=== PATIENT | male | born 1970 | race Caucasian/White ===

== ENCOUNTER 2018-06-07 18:12 | Emergency (ER) | payer SELFPAY ==
[~2018-06-07 18:12] MED LIST: CLO1 PO; DOXY-179 PO
--- NOTE | 2018-06-07 18:18 | ER Report ---
History and Physical Time Seen By MD: 18:19 HPI/ROS CHIEF COMPLAINT: Right flank pain HISTORY OF PRESENT ILLNESS: 47-year-old male with a history of irritable bowel syndrome presents ambulatory to the ER complaining of severe right flank pain f or most of the day. Tonight. It's unbearable. He's been vomiting. Patient notes he does have a family history of kidney stones. He's never had kidney stones but both his dad and sister do. Patient took his Bentyl without improvement of his symptoms. REVIEW OF SYSTEMS: Respiratory: No cough, no dyspnea. Cardiovascular: No chest pain, no palpitations. Gastrointestinal: As above Musculoskeletal: As above Allergies: Coded Allergies: No Known Drug Allergies (Unverified , 11/26/11) Home Meds Reported Medications Lamotrigine (LAMICTAL) 200 Mg Tablet, 200 MG PO 06/07/18 Gabapentin (GABAPENTIN) 300 Mg Capsule, 300 MG PO TID, CAPSULE 06/07/18 Discontinued Reported Medications Doxycycline Hyclate (Doxycycline Hyclate) 100 Mg Tablet, 100 MG PO BID, #42 11/26/11 Clonazepam (Klonopin) 1 Mg Tab, 2 MG PO RACHEAL 11/26/11 Reviewed Nurses Notes: Yes Old Medical Records Reviewed: Yes Hx Smoking: No Hx Substance Use Disorder: No Hx Alcohol Use: Yes (OCCASSIONALLY) Constitutional Vital Sign - Last 24 Hours 06/07/18 06/07/18 06/07/18 06/07/18 18:12 18:23 18:24 18:27 Temp 98.2 Pulse ??? 79 80 Resp 18 B/P (MAP) 162/92 162/92 (115) Pulse Ox 92 93 O2 Delivery Room Air 06/07/18 06/07/18 06/07/18 06/07/18 18:42 18:47 18:57 19:00 Pulse 78 67 B/P (MAP) 123/82 (96) 125/81 (96) Pulse Ox 92 91 06/07/18 06/07/18 06/07/18 19:27 19:30 19:42 Pulse 64 66 B/P (MAP) 132/87 (102) Pulse Ox 93 93 Physical Exam Vital signs stable, afebrile, pulse ox normal General Appearance: The patient is alert, has no immediate need for airway protection and no current signs of toxicity. Slightly pale appearing, skin warm and dry Eyes: Pupils equal and round no injection. Respiratory: Chest is non tender, lungs are clear to auscultation. Cardiac: regular rate and rhythm Gastrointestinal: Abdomen is soft, there is no tenderness on palpation of the right lower quadrant, especially over McBurney's point., no masses, bowel sounds normal. There is moderate right CVA tenderness Musculoskeletal: Neck: Neck is supple and non tender. No lymphadenopathy Extremities have full range of motion and are non tender. Skin: No rashes or lesions. DIFFERENTIAL DIAGNOSIS: After history and physical exam differential diagnosis was considered for flank pain including but not limited to musculoskeletal causes, kidney stone, pyelonephritis, shingles, and intra-abdominal causes such as diverticulitis and appendicitis. Medical Decision Making Data Points Result Diagram: 06/07/180 06/07/18 1830 Laboratory Hematology Test 06/07/18 18:18 06/07/18 18:30 Urine Color Yellow Urine Clarity Clear Urine pH 5.0 pH (4.8-9.5) Urine Specific [place] 1.015 Urine Protein Negative mg/dL (NEGATIVE) Urine Glucose (UA) Negative mg/dL (NEGATIVE) Urine Ketones Negative mg/dL (NEGATIVE) Urine Blood Large (NEGATIVE) Urine Nitrite Negative (NEGATIVE) Urine Bilirubin Negative (NEGATIVE) Urine Urobilinogen Negative mg/dL (0.2-1.9) Urine Leukocyte Esterase Negative (NEGATIVE) Urine RBC 87 /HPF (0-2/HPF) Urine WBC 2 /HPF (0-5/HPF) Urine Squamous Epithelial Cells None /LPF (</=FEW) Urine Bacteria Negative /HPF (NONE-FEW) Urine Mucus None /HPF (NONE-FEW) Red Blood Count 5.84 M/uL (4.00-5.60) Mean Corpuscular Volume 84.7 fL (80.0-96.0) Mean Corpuscular Hemoglobin 28.8 pg (26.0-33.0) Mean Corpuscular Hemoglobin Concent 34.0 g/dL (32.0-36.0) Red Cell Distribution Width 12.4 % (11.5-14.5) Mean Platelet Volume 10.3 fL (7.2-11.1) Neutrophils (%) (Auto) 62.1 % (39.4-72.5) Lymphocytes (%) (Auto) 26.5 % (17.6-49.6) Monocytes (%) (Auto) 6.0 % (4.1-12.4) Eosinophils (%) (Auto) 4.2 % (0.4-6.7) Basophils (%) (Auto) 1.2 % (0.3-1.4) Nucleated RBC Relative Count (auto) 0.0 /100WBC Neutrophils # (Auto) 7.7 K/uL (2.0-7.4) Lymphocytes # (Auto) 3.3 K/uL (1.3-3.6) Monocytes # (Auto) 0.7 K/uL (0.3-1.0) Eosinophils # (Auto) 0.5 K/uL (0.0-0.5) Basophils # (Auto) 0.2 K/uL (0.0-0.1) Nucleated RBC Absolute Count (auto) 0.00 K/uL Sodium Level 142 mmol/L (137-145) Potassium Level 3.9 mmol/L (3.5-5.0) Chloride Level 106 mmol/L (98-107) Carbon Dioxide Level 25 mmol/L (22-30) Blood Urea Nitrogen 16 mg/dl (9-21) Creatinine 1.40 mg/dl (0.66-1.25) Glomerular Filtration Rate Calc 54.1 Random Glucose 118 mg/dl (75-110) Calcium Level 9.2 mg/dl (8.4-10.2) Total Bilirubin 0.5 mg/dl (0.2-1.3) Aspartate Amino Transf (AST/SGOT) 19 U/L (0-35) Alanine Aminotransferase (ALT/SGPT) 30 U/L (0-56) Alkaline Phosphatase 80 U/L (0-126) Total Protein 6.8 g/dl (6.3-8.2) Albumin 4.0 g/dl (3.5-5.0) Amylase Level 56 U/L (0-110) Lipase 43 U/L (23-300) Chemistry Test 06/07/18 18:18 06/07/18 18:30 Urine Color Yellow Urine Clarity Clear Urine pH 5.0 pH (4.8-9.5) Urine Specific [place] 1.015 Urine Protein Negative mg/dL (NEGATIVE) Urine Glucose (UA) Negative mg/dL (NEGATIVE) Urine Ketones Negative mg/dL (NEGATIVE) Urine Blood Large (NEGATIVE) Urine Nitrite Negative (NEGATIVE) Urine Bilirubin Negative (NEGATIVE) Urine Urobilinogen Negative mg/dL (0.2-1.9) Urine Leukocyte Esterase Negative (NEGATIVE) Urine RBC 87 /HPF (0-2/HPF) Urine WBC 2 /HPF (0-5/HPF) Urine Squamous Epithelial Cells None /LPF (</=FEW) Urine Bacteria Negative /HPF (NONE-FEW) Urine Mucus None /HPF (NONE-FEW) White Blood Count 12.4 k/uL (4.5-11.0) Red Blood Count 5.84 M/uL (4.00-5.60) Hemoglobin 16.8 g/dL (14.0-18.0) Hematocrit 49.5 % (42.0-52.0) Mean Corpuscular Volume 84.7 fL (80.0-96.0) Mean Corpuscular Hemoglobin 28.8 pg (26.0-33.0) Mean Corpuscular Hemoglobin Concent 34.0 g/dL (32.0-36.0) Red Cell Distribution Width 12.4 % (11.5-14.5) Platelet Count 227 K/uL (150-450) Mean Platelet Volume 10.3 fL (7.2-11.1) Neutrophils (%) (Auto) 62.1 % (39.4-72.5) Lymphocytes (%) (Auto) 26.5 % (17.6-49.6) Monocytes (%) (Auto) 6.0 % (4.1-12.4) Eosinophils (%) (Auto) 4.2 % (0.4-6.7) Basophils (%) (Auto) 1.2 % (0.3-1.4) Nucleated RBC Relative Count (auto) 0.0 /100WBC Neutrophils # (Auto) 7.7 K/uL (2.0-7.4) Lymphocytes # (Auto) 3.3 K/uL (1.3-3.6) Monocytes # (Auto) 0.7 K/uL (0.3-1.0) Eosinophils # (Auto) 0.5 K/uL (0.0-0.5) Basophils # (Auto) 0.2 K/uL (0.0-0.1) Nucleated RBC Absolute Count (auto) 0.00 K/uL Glomerular Filtration Rate Calc 54.1 Calcium Level 9.2 mg/dl (8.4-10.2) Total Bilirubin 0.5 mg/dl (0.2-1.3) Aspartate Amino Transf (AST/SGOT) 19 U/L (0-35) Alanine Aminotransferase (ALT/SGPT) 30 U/L (0-56) Alkaline Phosphatase 80 U/L (0-126) Total Protein 6.8 g/dl (6.3-8.2) Albumin 4.0 g/dl (3.5-5.0) Amylase Level 56 U/L (0-110) Lipase 43 U/L (23-300) Urinalysis Test 06/07/18 18:18 Urine Color Yellow Urine Clarity Clear Urine pH 5.0 pH (4.8-9.5) Urine Specific [place] 1.015 Urine Protein Negative mg/dL (NEGATIVE) Urine Glucose (UA) Negative mg/dL (NEGATIVE) Urine Ketones Negative mg/dL (NEGATIVE) Urine Blood Large (NEGATIVE) Urine Nitrite Negative (NEGATIVE) Urine Bilirubin Negative (NEGATIVE) Urine Urobilinogen Negative mg/dL (0.2-1.9) Urine Leukocyte Esterase Negative (NEGATIVE) Urine RBC 87 /HPF (0-2/HPF) Urine WBC 2 /HPF (0-5/HPF) Urine Squamous Epithelial Cells None /LPF (</=FEW) Urine Bacteria Negative /HPF (NONE-FEW) Urine Mucus None /HPF (NONE-FEW) EKG/Imaging Imaging Results: CT scan of the abdomen and pelvis without contrast was obtained. The results of the study are EXAMINATION: CT abdomen and pelvis without IV contrast HISTORY: Left flank pain. Microhematuria. TECHNIQUE: Axial CT images of the abdomen and pelvis were obtained without IV contrast, with coronal and sagittal 2D reconstructed images. One of the following dose optimization techniques was utilized in the performance of this exam: Automated exposure control; adjustment of the mA and/or kV according to the patient's size; or use of an iterative reconstruction technique. Specific details can be referenced in the facility's radiology CT exam operational policy. COMPARISON: None. FINDINGS: Evaluation of the solid and viscus parenchymal organs is limited without the benefit of IV contrast. Kidney/ureters/bladder: Normal size and morphology of both kidneys. There are small bilateral nonobstructing renal calculi. There are 2 nonobstructing stones in the mid and upper right kidney, with the larger measuring 4 mm in the upper pole. There are 4 nonobstructing stones in the left kidney with the largest measuring 4 mm in the mid left kidney. No hydronephrosis. No ureteral calculus. There is a 4 mm stone in the posterior dependent aspect of the urinary bladder. In light of the patient's symptoms this could represent a recently passed stone from the left kidney. The urinary bladder is mildly distended and otherwise unremarkable. Liver: Negative. Gallbladder and bile ducts: Negative. Spleen: Negative. Pancreas: Negative. Adrenal glands: Negative. Bowel and peritoneum: The small bowel and colon are normal in caliber, without evidence of obstruction or any focal inflammatory process. Normal appendix. No free fluid. Lymph node assessment: Negative. Vessels: Normal caliber abdominal aorta. Musculoskeletal: No acute osseous findings. Degenerative changes in the lower lumbar spine with mild disc space narrowing at L5-S1. Body wall: Negative. Lung bases: Negative. IMPRESSION: 1. Bilateral nonobstructing renal calculi, measuring up to 4 mm in each kidney. No hydronephrosis or ureteral calculus at this time. 2. There is a 4 mm stone in the posterior dependent aspect of the urinary bladder. In light of the patient's reported symptoms this could potentially represent a recently passed stone from the left kidney. 3. No other acute intra-abdominal findings by noncontrast CT imaging. The study was read by the radiologist. I viewed the images myself on the PACS system. ED Course/Re-evaluation Clinical Indication for ER IV: Hydration, IV Access ED Course Patient was minute to an examination room. H&P was done. The differential diagnoses was considered. Patient with severe right flank pain. Urinalysis shows microscopic hematuria. Patient's treated with IV fluid hydration, Zofran, Toradol, fentanyl. His pain control is adequate his pain medicine is increased to Dilaudid 1/2 mg. He is resting comfortably now. He CT scan of the abdomen and pelvis without contrast was ordered. It confirms a 5 mm stone in the ureteropelvic junction on the right side. He also has several nonobstructing kidney stones bilaterally. Patient's discharged home on Flomax, hydrocodone and Zofran. He is advised ibuprofen as supple. Mental pain relief as well. He's advised to follow up with urologist if unimproved in 3-5 days. He was provided for information. Dr. Mark. Dr. Wadsworth. Decision to Disposition Date: Jun 07, 2018 Decision to Disposition Time: 19:54 Depart Departure Latest Vital Signs Vital Signs Date Time Temp Pulse Resp B/P (MAP) Pulse Ox O2 Delivery O2 Flow Rate FiO2 06/07/18 19:42 66 93 06/07/18 19:30 132/87 (102) 06/07/18 18:23 98.2 18 Room Air Impression: Primary Impression: Kidney stone Condition: Improved Disposition: HOME OR SELF-CARE Referrals: DEJAN PERKINS MD, ERIC J MD Patient Instructions: Kidney Stones (ED) Additional Instructions: Take ibuprofen as needed for pain relief Return to the ER for any severe pain ADRIANNA ARIAS DO Jun 07, 2018 18:18
[2018-06-07] MEDS ORDERED: NS(*) 0.9% 1000 ML BAG 1,000 ML IV ONE (18:23)
[2018-06-07] MEDS ORDERED: GABA-549 PO (18:33)
[2018-06-07] MEDS ORDERED: LAMO200T46 PO (18:33)
[2018-06-07 18:36] LABS: PLATELET COUNT, AUTOMATED 227 K/uL (150-450)
[2018-06-07] MEDS ORDERED: IOPAMIDOL 76% 75 ML INFUS BTL 0 ML ONE (19:15)
[2018-06-07 19:30] VITALS: BP 132/87
--- NOTE | 2018-06-07 19:44 | RADIOLOGY IMAGING REPORT ---
FACILITY: [facility] - [place] PATIENT NAME: Eulogio Paul : 1970 MR: [id number] V: [id number] EXAM DATE: ORDERING PHYSICIAN: ADRIANNA ARIAS TECHNOLOGIST: Location: [facility] Patient: Eulogio Paul : 1970 Visit/Account:[id number] Date of Sevice: 06/07/2018 EXAMINATION: CT abdomen and pelvis without IV contrast HISTORY: Left flank pain. Microhematuria. TECHNIQUE: Axial CT images of the abdomen and pelvis were obtained without IV contrast, with elizabeth l and sagittal 2D reconstructed images. One of the following dose optimization techniques was utilized in the performance of this exam: Autom ated exposure control; adjustment of the mA and/or kV according to the patient's size; or use of an i terative reconstruction technique. Specific details can be referenced in the facility's radiology C T exam operational policy. COMPARISON: None. FINDINGS: Evaluation of the solid and viscus parenchymal organs is limited without the benefit of IV contrast. Kidney/ureters/bladder: Normal size and morphology of both kidneys. There are small bilateral nonobst ructing renal calculi. There are 2 nonobstructing stones in the mid and upper right kidney, with the larger measuring 4 mm in the upper pole. There are 4 nonobstructing stones in the left kidney with th e largest measuring 4 mm in the mid left kidney. No hydronephrosis. No ureteral calculus. There is a 4 mm stone in the posterior dependent aspect of the urinary bladder. In light of the patie nt's symptoms this could represent a recently passed stone from the left kidney. The urinary bladder is mildly distended and otherwise unremarkable. Liver: Negative. Gallbladder and bile ducts: Negative. Spleen: Negative. Pancreas: Negative. Adrenal glands: Negative. Bowel and peritoneum: The small bowel and colon are normal in caliber, without evidence of obstructi on or any focal inflammatory process. Normal appendix. No free fluid. Lymph node assessment: Negative. Vessels: Normal caliber abdominal aorta. Musculoskeletal: No acute osseous findings. Degenerative changes in the lower lumbar spine with mil d disc space narrowing at L5-S1. Body wall: Negative. Lung bases: Negative. IMPRESSION: 1. Bilateral nonobstructing renal calculi, measuring up to 4 mm in each kidney. No hydronephrosis or ureteral calculus at this time. 2. There is a 4 mm stone in the posterior dependent aspect of the urinary bladder. In light of the pa tient's reported symptoms this could potentially represent a recently passed stone from the left kidn ey. 3. No other acute intra-abdominal findings by noncontrast CT imaging. Report Dictated By: Camacho Gu MD at 06/07/2018 7:31 PM Report E-Signed By: Camacho Gu MD at 06/07/2018 7:40 PM WSN:[id number]
== END 2018-06-07 20:06 | disposition home or self-care (01) ==
LOC: ER 18:17
DX: N20.0 Calculus of kidney (principal); N21.0 Calculus in bladder
CPT/HCPCS: 74176; 81001; 82150; 83690; 85025; 96360; 99284; J7030; 82040; 82247; 82310; 82374; 82435; 82565; 82947; 84075; 84132; 84155; 84295; 84450; 84460; 84520; Q9967